=== PATIENT | male | born 1950 | race Two or more races ===

== ENCOUNTER 2024-09-25 18:11 | Inpatient (IN) ==
[2024-09-25] MEDS ORDERED: iohexoL-300 100 ML VIAL ONE (19:51)
[2024-09-25 19:55] LABS: BASOPHILS # (AUTO) 0.1 10^3/uL (0.0-0.1); BASOPHILS % (AUTO) 0.8 %; EOSINOPHILS # (AUTO) 0.2 10^3/uL (0.0-0.7); EOSINOPHILS % (AUTO) 2.1 %; HCT - HEMATOCRIT 39.2 % (42.0-52.0); HGB - HEMOGLOBIN 13.5 g/dL (14.0-18.0); LYMPHOCYTES # (AUTO) 1.2 10^3/uL (1.5-3.5); LYMPHOCYTES % (AUTO) 16.7 %; MEAN CORPUSCULAR HEMOGLOBIN 32.1 pg (27.0-31.0); MEAN CORPUSCULAR HGB CONC 34.4 g/dL (32.0-36.0); MEAN CORPUSCULAR VOLUME 93.1 fL (80.0-94.0); MEAN PLATELET VOLUME 9.3 fL (7.4-11.4); MONOCYTES # (AUTO) 0.5 10^3/uL (0.0-1.0); MONOCYTES % (AUTO) 6.6 %; NEUTROPHILS # (AUTO) 5.4 10^3/uL (1.5-6.6); NEUTROPHILS % (AUTO) 73.5 %; PLT - PLATELET COUNT 266 10^3/uL (130-450); RED BLOOD COUNT 4.21 10^6/uL (4.70-6.10); RED CELL DISTRIBUTION WIDTH 12.6 % (12.0-15.0); WHITE BLOOD COUNT 7.3 x10^3/uL (4.8-10.8)
--- NOTE | 2024-09-25 20:15 | ED Physician Documentation ---
History of Present Illness Stated complaint Stated Complaint: VOMITING Chief complaint Chief Complaint: General History obtained from History obtained from: Patient History of Present Illness Timing: Prior to arrival Additonal information Additional information: Patient 74-year-old male Generally healthy presents to the emergency department with epigastric pain nausea vomiting that started this afternoon after trying to eat some chili and dry cornbread. Patient notes persistent epigastric pain from the nausea vomiting but seem to resolve a little bit later. Patient has been having intermittent episodes of this for period of time now according to his . She notes it is progressively worsened and initially started with him eating a large piece of steak. She notes it never has gone on this along with the recurrent nausea and vomiting. Patient feels he is feeling significantly better. No chest pain no shortness of breath he notes he was drinking a beer with the chili and dry corn bed this afternoon. He has a history of a abdominal surgery but 2 years ago he had recurrent nausea and vomiting he had what sounds like a volvulus from what his is describing but no records as they went to [place] for it at that time. Patient denies any feelings of food stuck in his throat at this time. Meds/Allgy Allergies Allergies Allergy/AdvReac Type Severity Reaction Status Date / Time hydrochlorothiazide Allergy Severe Anaphylaxis Verified 09/25/24 18:17 mycophenolate mofetil Allergy Intermediate Emesis Verified 09/25/24 18:17 [facility] Active Problems All Active Problems (Updated 09/25/24 @ 22:25 by Kayli Townsend PA-C) Nausea & vomiting (Acute) Social History Social History Relationship: Do you feel safe in your home environment?: Yes Suffered physical, verbal, emotional, or financial abuse?: No POLST Patient has POLST: No Exam Exam Vital Signs: Vital Signs x48h Temp Pulse Resp BP Pulse Ox 09/25/24 21:49 93 16 178/75 H 96 09/25/24 21:00 84 16 148/106 H 94 09/25/24 19:20 79 16 176/75 H 96 09/25/24 18:17 36.7 C 77 16 167/72 H 97 Constitutional normal general appearance HENMT normocephalic, head/scalp atraumatic and hearing grossly normal bilaterally Eyes PERRL, EOMs intact bilaterally and conjunctivae normal Neck/C-Spine visual inspection normal Lymph no lymphadenopathy noted Chest inspection of chest normal Respiratory breath sounds equal bilaterally, normal respiratory effort and clear to ausculta tion bilaterally Cardiovascular normal heart rate noted, regular rhythm noted, no gallop and no rub Gastrointestinal No specific upper abdominal pain or lower abdominal pain no CVA tenderness no rebound or guarding. Active bowel sounds appreciated on auscultation. Abdomen nondistended on exam. Back/Pelvis spine normal to inspection Extremities normal to inspection Skin skin color normal, no rash and no lesions Results Vitals Vitals: Vital Signs - 24 hr 09/25/24 18:17 09/25/24 18:30 09/25/24 19:20 Temperature 36.7 C Temperature Source Tympanic Pulse Rate 77 79 Respiratory Rate 16 16 Blood Pressure 167/72 H 176/75 H O2 Saturation 97 96 O2 Source Room air Room air Pain Intensity 0 0 09/25/24 21:00 09/25/24 21:49 Temperature Temperature Source Pulse Rate 84 93 Respiratory Rate 16 16 Blood Pressure 148/106 H 178/75 H O2 Saturation 94 96 O2 Source Room air Room air Pain Intensity 0 Oxygen O2 Source Room air Labs Labs: Laboratory Tests 09/25/24 19:49 WBC 7.3 RBC 4.21 L Hgb 13.5 L Hct 39.2 L MCV 93.1 MCH 32.1 H MCHC 34.4 RDW 12.6 Plt Count 266 MPV 9.3 Neut # (Auto) 5.4 Lymph # (Auto) 1.2 L Deuel # (Auto) 0.5 Eos # (Auto) 0.2 Baso # (Auto) 0.1 Absolute Nucleated RBC 0.00 Nucleated RBC % 0.0 Sodium 132 L Potassium 4.0 Chloride 99 L Carbon Dioxide 23 Anion Gap 10.0 BUN 11 Creatinine 0.6 Estimated GFR (MDRD) 132 Glucose 102 Calcium 9.5 Total Bilirubin 0.6 AST 24 ALT 17 Alkaline Phosphatase 66 Total Protein 7.7 Albumin 4.5 Globulin 3.2 Albumin/Globulin Ratio 1.4 Lipase 25 PD Medical Decision Making ED course Complexity details: reviewed old records and reviewed results ED course: Patient 74-year-old male Generally healthy presents to the emergency department with epigastric pain nausea vomiting that started this afternoon after trying to eat some chili and dry cornbread. Patient notes persistent epigastric pain from the nausea vomiting but seem to resolve a little bit later. Patient has been having intermittent episodes of this for period of time now according to his . She notes it is progressively worsened and initially started with him eating a large piece of steak. She notes it never has gone on this along with the recurrent nausea and vomiting. Patient feels he is feeling significantly better. No chest pain no shortness of breath he notes he was drinking a beer with the chili and dry corn bed this afternoon. CT abdominal pelvis: No small bowel obstruction. No drainable abscess or ascites. Distended urinary bladder. Heterogeneous prostate enhancement is nonspecific. More focal enhancement is seen of the left apex, consider PSA and possible MRI correlation. Multiple abdominal hernias, including a moderate-sized ventral midline hernia containing omental vessels. Other findings above. CT chest: Trace hiatal hernia. Moderately distended esophagus. Possible small outpouching adjacent to the gastroesophageal junction at the distal esophagus, possibly a small tear versus diverticulum. Consider endoscopic correlation. No definite pneumomediastinum or pneumothorax. Other findings above. Reassuring CT abdomen but chest was gas for possible small tear versus diverticulum. I reviewed findings with on-call surgeon Dr. Verdin. He notes patient's symptoms reassuring as he has no pneumomediastinum and he has no persistent symptoms at this time. Feels patient is safe to go home as long as he can tolerate clear liquids. He recommends patient return with any worsening symptoms and he will see him in the outpatient setting. PO challenged here in the ED and failed. Discussed with Dr. Verdin again he will see patient in the morning agreeable with admission overnight. Patient will be admitted to DR. Cabral who is agreeable with this plan. Patient will remain n.p.o. PPI Protonix 40 ordered for patient. Discharge Plan Discharge Patient Disposition: 66 [facility] DC/Xfer Condition: Stable Clinical Impression: Nausea & vomiting Print Language: Macanese
[2024-09-25 20:40] LABS: ALBUMIN 4.5 g/dL (3.2-5.5); ALBUMIN/GLOBULIN RATIO 1.4 (1.0-2.2); BILIRUBIN,TOTAL 0.6 mg/dL (0.2-1.0); CALCIUM 9.5 mg/dL (8.5-10.3); CREATININE 0.6 mg/dL (0.6-1.3); TOTAL PROTEIN 7.7 g/dL (6.4-8.9)
[2024-09-25] MEDS: ONDANSETRON ODT 4 MG TABLET TL STA (20:58)
[2024-09-25] MEDS: iohexoL-300 100 ML VIAL IVP ONE (21:02)
--- NOTE | 2024-09-25 21:20 | CT Report ---
PROCEDURE: CT Chest W INDICATIONS: chest pain after vomiting CONTRAST: 100 ML OMNI 300 TECHNIQUE: After the administration of intravenous contrast, a CT scan of the chest was performed. Images were recorded and evaluated at appropriate window settings. Reformats: axial MIP of the chest, coronal and sagittal. For radiation dose reduction, the following was used: automated exposure control, adjustme nt of mA and/or kV according to patient size. COMPARISON: None. FINDINGS: Image quality: Diagnostic Lungs and pleura:Bilateral apex scarring. No dense airspace disease. No pleural effusions. No pneumot horax. Mediastinum, heart, and esophagus: Moderately distended esophagus and possible trace hiatal hernia. T here is a small outpouching adjacent to the gastroesophageal junction on the left image . No pathologic lymphadenopathy by size criteria. There are coronary calcifications. Chest wall and thyroid: No actionable thyroid nodule identified. Chest wall is unremarkable Upper abdomen: Separately dictated Bones: No aggressive appearing osseous abnormality. IMPRESSION: Trace hiatal hernia. Moderately distended esophagus. Possible small outpouching adjacent to the travis roesophageal junction at the distal esophagus, possibly a small tear versus diverticulum. Consider endoscopic correlation. No definite pneumomediastinum or pneumothorax. Other findings above. Reviewed by: Sid Mckee MD on 09/25/2024 9:19 PM PDT Approved by: Sid Mckee MD on 09/25/2024 9:19 PM PDT Station ID: [id number]
--- NOTE | 2024-09-25 21:24 | CT Report ---
PROCEDURE: CT Abdomen/Pelvis W INDICATIONS: abdominal pain, vomiting CONTRAST: 100 ML OMNI 300 TECHNIQUE: After the administration of intravenous contrast, a CT scan of the abdomen and pelvis was performed. Images were recorded and evaluated at appropriate window settings. Reformats: coronal and sagittal. F or radiation dose reduction, the following was used: automated exposure control, adjustment of mA and /or kV according to patient size. COMPARISON: None. FINDINGS: Image quality: Diagnostic Lower chest: Separately dictated Liver: Unremarkable Gallbladder and biliary system: Unremarkable, nondilated Pancreas: No ductal dilation Spleen: Nonenlarged Adrenals: No discrete nodules Kidneys: Suspected small cysts. No solid renal mass. No hydronephrosis. Vessels and lymph nodes: Main portal vein is patent. No abdominal aortic aneurysm. No pathologic lymp hadenopathy by size criteria. Bowel and peritoneum: Small duodenal diverticula. No drainable abscess or ascites. No small bowel obstruction. Body wall: Moderate fat-containing umbilical hernia containing also omental vessels. Small fat-contai alexx right inguinal hernia also seen. Pelvis: Urinary bladder is distended. Suspected bursal fluid adjacent to the right hip Heterogeneous prostate enhancement and calcifications, not well assessed on this study. Focal enhance ment is seen at the left apex. Bones: No aggressive appearing osseous abnormality. Sacroiliac ankylosis. Scattered degenerative rodriguez ges. IMPRESSION: No small bowel obstruction. No drainable abscess or ascites. Distended urinary bladder. Heterogeneous prostate enhancement is nonspecific. More focal enhancement is seen of the left apex, consider PSA and possible MRI correlation. Multiple abdominal hernias, including a moderate-sized ventral midline hernia containing omental vess els. Other findings above. Reviewed by: Sid Mckee MD on 09/25/2024 9:23 PM PDT Approved by: Sid Mckee MD on 09/25/2024 9:23 PM PDT Station ID: [id number]
[2024-09-25] MEDS ORDERED: SODIUM CHLORIDE FLUSH 0.9% 10 ML SYRINGE IVP PRN (22:30)
[2024-09-25] MEDS ORDERED: ONDANSETRON 4 MG/2 ML VIAL IVP PRN (22:30)
[2024-09-25] MEDS: PANTOPRAZOLE 40 MG VIAL IVP STA (22:43)
[2024-09-25] MEDS: SODIUM CHLORIDE 0.9% 1,000 ML IV SCH (22:43)
--- NOTE | 2024-09-25 22:48 | HISTORY & PHYSICAL EXAMINATION ---
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 Denies hematemesis, melena, rectal bleeding. CT abdomen/pelvis showed possible esophageal tear. As per Kayli HOLBROOK), she consulted with surgeon identification printing machine setter who recommended admission for possible EGD in am Pt is admitted due to nausea, vomiktimg, epigastric pain and possible esophageal tear Review of Systems Status of ROS: 10 or more systems reviewed and unremarkable except as noted in history and below PFSH Active Problems All Active Problems (Updated 09/25/24 @ 22:25 by Kayli Townsend PA-C) Nausea & vomiting (Acute) Social History Social History Relationship: Do you feel safe in your home environment?: Yes Suffered physical, verbal, emotional, or financial abuse?: No POLST Patient has POLST: No Meds/Allgy Allergies Allergies Allergy/AdvReac Type Severity Reaction Status Date / Time hydrochlorothiazide Allergy Severe Anaphylaxis Verified 09/25/24 18:17 mycophenolate mofetil Allergy Intermediate Emesis Verified 09/25/24 18:17 Exam Exam Vital Signs: Vital Signs x48h Temp Pulse Resp BP Pulse Ox 09/25/24 21:49 93 16 178/75 H 96 09/25/24 21:00 84 16 148/106 H 94 09/25/24 19:20 79 16 176/75 H 96 09/25/24 18:17 36.7 C 77 16 167/72 H 97 Constitutional normal general appearance HENMT normocephalic Eyes PERRL Chest inspection of chest normal Respiratory breath sounds equal bilaterally Cardiovascular normal heart rate noted Gastrointestinal abdomen normal to inspection Extremities normal to inspection Neurology no focal motor deficit noted Psychiatry oriented x3 Skin no rash Conclusion/Plan Problem List (1) Nausea & vomiting: Plan: A: Nausea and vomiting Epigastric pain Esophageal tear Dehydration Hyponatremia Plan: Admit to med surg with tele NPO Start protonix 40 mg iv qd zofran iv prn Start NS @ 100 cc/h monitor i/o, electrolytes Surgeon identification printing machine setter was consulted by Kayli HOLBROOK) DVT prophylaxic: SCD Full code Pt is admitted as inpatient as more than 2 midnight stay is expected Lab Results 09/25/24 19:49 09/25/24 19:49
[2024-09-25 23:24] LABS: BILIRUBIN,URINE NEGATIVE (NEGATIVE); GLUCOSE, URINE (UA) NEGATIVE (NEGATIVE); KETONES,URINE (UA) TRACE mg/dL (NEGATIVE); LEUKOCYTE ESTERASE, URINE MODERATE (NEGATIVE); NITRITE,URINE POSITIVE (NEGATIVE); OCCULT BLOOD,URINE NEGATIVE (NEGATIVE); PROTEIN,URINE NEGATIVE (NEGATIVE); UROBILINOGEN,URINE 0.2 (NORMAL) E.U./dL (NORMAL)
[2024-09-25 23:33] LABS: BACTERIA,URINE Many /HPF (None Seen); CLARITY,URINE HAZY (CLEAR); SQUAMOUS EPITHELIAL CELL,UR RARE Squamous (<= Few)
[2024-09-26] MEDS: SODIUM CHLORIDE FLUSH 0.9% 10 ML SYRINGE IVP SCH (01:03)
[2024-09-26] MEDS: PANTOPRAZOLE 40 MG VIAL IV SCH (08:55)
--- NOTE | 2024-09-26 11:10 | PHARMACY PROGRESS NOTE ---
Best Possible Medication History Admit Date and Time: 09/25/24 2230 Home Medications Medication Instructions Recorded Confirmed Type acetaminophen 500 mg capsule 500 mg PO Q4H PRN fever or pain 09/25/24 09/25/24 History atorvastatin 20 mg tablet 20 mg PO QPM 09/25/24 09/25/24 History diltiazem HCl 420 mg capsule,24 420 mg PO ONCE 09/25/24 09/25/24 History hr,extended release (Tiadylt ER) finasteride 5 mg tablet 5 mg PO ONCE 09/25/24 09/25/24 History losartan 100 mg tablet 100 mg PO ONCE 09/25/24 09/25/24 History tamsulosin 0.4 mg capsule 0.8 mg PO ONCE 09/25/24 09/25/24 History vitamin A 3,000 mcg (10,000 unit) 3,000 mcg PO DAILY 09/25/24 09/25/24 History capsule Processed by: Pharmacy Medications reviewed in ED?: No Medication History completed: Yes Patient Interview: Completed Secondary Source(s): Other family member and Insurance records [facility] Statement: Per interview with spouse and patient and [facility]. As the person ultimately responsible for medication therapy, providers are able to order a medication from an existing home medication list in [facility] via the "Reconcile Routine" prior to Confirmation of that medication by business support associate. Such practice is discouraged except when the physician, in their clinical judgment, deems that a medical need exists for a medication without regard to previous use.
[2024-09-26] MEDS ORDERED: ACETAMINOPHEN 500 MG TABLET PO PRN (12:06)
[2024-09-26] MEDS: LOSARTAN 50 MG TABLET PO SCH (14:44)
[2024-09-26] MEDS: FINASTERIDE 5 MG TABLET PO SCH (14:44)
[2024-09-26] MEDS: diltiaZEM CD 240 MG CAPSULE PO SCH (15:02)
[2024-09-26] MEDS: diltiaZEM CD 180 MG CAPSULE PO SCH (15:02)
[2024-09-26 15:37] VITALS: BP 150/84; TEMP 97.9; O2SAT 98
--- NOTE | 2024-09-26 19:55 | Discharge Summary ---
Discharge Summary Admit Date: 09/25/24 Discharge Date: 09/26/24 Discharging Provider: Jacobo Florez MD DIAGNOSES Admission Diagnoses: 1. nausea and vomiting 2. epigastric pain 3. r/o esophageal tear 4. dehydration 5. hyponatremia Discharge Diagnoses with Status of Each Condition: 1. nausea and vomiting, resolved 2. epigastric pain, resolved 3. r/o esophageal tear 4. dehydration, resolved 5. hyponatremia 6. HTN 7. BPH 8. chronic urinary retention requiring self catheterization 9. afib HPI History of Present Illness: 74 y old male with PMH Volvulus, afib not on anticoagulation, HTN, BPH, urinary retention presented to ER due to epigastric pain, nausea, vomiting for 1 day. Denies hematemesis, melena, rectal bleeding.CT abdomen/pelvis showed possible esophageal tear. As per Kayli ( YUSEF), she consulted with surgeon subcontracts manager who recommended admission for possible EGD in am. Pt is admitted due to nausea, vomiting, epigastric pain and possible esophageal tear. HOSPITAL COURSE Hospital Course: 1. nausea and vomiting, resolved. epigastric pain, resolved. r/o esophageal tear: I discussed case with surgeon Dr. Verdin today and he has low suspicion for gastric tear. The pt has no reported hematemesis. Symptoms more consistent with globus sensation and food getting stuck in lower chest. Notes intermittent episodes of similar complains over recent months, suggesting a more chronic condition. Consider esophageal stricture, esophagitis, GERD, mechanical obstruction, motility disorder. No problem with swallowing liquids. Symptoms entirely resolved by day of discharge. Pt tolerated po intake of solid and liquids without problems. He had good follow up with his PMD and plans colonoscopy soon. He will request a referral for EGD from his PMD. 2. hyponatremia: Mildly low Na at 132 on admission. Suspect due to vomiting and volume depletion. With regular po intake, expect sodium to normalize. 3. HTN: Continue home losartan 4. afib: Continue home diltiazem. Updated at bedside. ALLERGIES Allergies Allergy/AdvReac Type Severity Reaction Status Date / Time hydrochlorothiazide Allergy Severe Anaphylaxis Verified 09/25/24 18:17 mycophenolate mofetil Allergy Intermediate Emesis Verified 09/25/24 18:17 MEDICATIONS Ambulatory Orders Medication Instructions Recorded Confirmed acetaminophen 500 mg capsule 500 mg PO Q4H PRN fever or pain 09/25/24 09/25/24 atorvastatin 20 mg tablet 20 mg PO QPM 09/25/24 09/25/24 diltiazem HCl 420 mg capsule,24 420 mg PO ONCE 09/25/24 09/25/24 hr,extended release (Tiadylt ER) finasteride 5 mg tablet 5 mg PO ONCE 09/25/24 09/25/24 losartan 100 mg tablet 100 mg PO ONCE 09/25/24 09/25/24 tamsulosin 0.4 mg capsule 0.8 mg PO ONCE 09/25/24 09/25/24 vitamin A 3,000 mcg (10,000 unit) 3,000 mcg PO DAILY 09/25/24 09/25/24 capsule PHYSICAL EXAM AT DISCHARGE Vital Signs: Vital Signs x48h Temp Pulse Pulse Resp BP Pulse Ox 09/26/24 15:34 36.6 C 70 14 150/84 H 98 09/26/24 12:01 36.7 C 76 20 166/85 H 95 older man sitting in bed, NAD, sclera anicteric, MMM LCTAB, RRR, S1S2, no edema abd soft, NT, Nd, BS+ AAOx3, CN 2-12 intact, strength 5/5 UE and LE bilat, sensation intact LABS 09/25/24 19:49 09/25/24 19:49 DIAGNOSTIC IMAGING Diagnostic Imaging Results Comments: CT chest, 09/25/24: FINDINGS: Image quality: Diagnostic Lungs and pleura:Bilateral apex scarring. No dense airspace disease. No pleural effusions. No pneumothorax. Mediastinum, heart, and esophagus: Moderately distended esophagus and possible trace hiatal hernia. There is a small outpouching adjacent to the gastroesophageal junction on the left image . No pathologic lymphadenopathy by size criteria. There are coronary calcifications. Chest wall and thyroid: No actionable thyroid nodule identified. Chest wall is unremarkable Upper abdomen: Separately dictated Bones: No aggressive appearing osseous abnormality. IMPRESSION: Trace hiatal hernia. Moderately distended esophagus. Possible small outpouching adjacent to the gastroesophageal junction at the distal esophagus, possibly a small tear versus diverticulum. Consider endoscopic correlation. No definite pneumomediastinum or pneumothorax. Other findings above. Reviewed by: Sid Mckee MD on 09/25/2024 9:[address] abd/pelvis, 09/26/24: FINDINGS: Image quality: Diagnostic Lower chest: Separately dictated Liver: Unremarkable Gallbladder and biliary system: Unremarkable, nondilated Pancreas: No ductal dilation Spleen: Nonenlarged Adrenals: No discrete nodules Kidneys: Suspected small cysts. No solid renal mass. No hydronephrosis. Vessels and lymph nodes: Main portal vein is patent. No abdominal aortic aneurysm. No pathologic lymphadenopathy by size criteria. Bowel and peritoneum: Small duodenal diverticula. No drainable abscess or ascites. No small bowel obstruction. Body wall: Moderate fat-containing umbilical hernia containing also omental vessels. Small fat-containing right inguinal hernia also seen. Pelvis: Urinary bladder is distended. Suspected bursal fluid adjacent to the right hip Heterogeneous prostate enhancement and calcifications, not well assessed on this study. Focal enhancement is seen at the left apex. Bones: No aggressive appearing osseous abnormality. Sacroiliac ankylosis. Scattered degenerative changes. IMPRESSION: No small bowel obstruction. No drainable abscess or ascites. Distended urinary bladder. Heterogeneous prostate enhancement is nonspecific. More focal enhancement is seen of the left apex, consider PSA and possible MRI correlation. Multiple abdominal hernias, including a moderate-sized ventral midline hernia containing omental vessels. Other findings above. Reviewed by: Sid Mckee MD on 09/25/2024 9:23 PM PDT TIME SPENT Time Spent in Discharge (Minutes): 45 Discharge Plan Discharge Patient Disposition: 01 Home, Self Care Condition: Stable Medically Cleared Date:: 09/26/24 Prescriptions: Continued atorvastatin 20 mg tablet 20 mg PO QPM Patient Comments: TAKE 1 TABLET BY MOUTH DAILY diltiazem HCl [Tiadylt ER] 420 mg capsule,extended release 24hr 420 mg PO ONCE Patient Comments: TAKE 1 CAPSULE BY MOUTH DAILY finasteride 5 mg tablet 5 mg PO ONCE Patient Comments: TAKE 1 TABLET BY MOUTH DAILY losartan 100 mg tablet 100 mg PO ONCE Patient Comments: TAKE 1 TABLET BY MOUTH DAILY tamsulosin 0.4 mg capsule 0.8 mg PO ONCE Patient Comments: TAKE 2 CAPSULES BY MOUTH DAILY vitamin A 3,000 mcg (10,000 unit) capsule 3,000 mcg PO DAILY acetaminophen 500 mg capsule 500 mg PO Q4H PRN (Reason: fever or pain) Activity Restrictions: Activity as Tolerated Diet: Regular Plan of Treatment: Contact your primary care provider or return to the hospital if you have trouble swallowing, abdominal pain, vomiting, difficulty breathing, choking, bleeding, or for any other concerns. Due to symptoms of food getting stuck, take small bites and chew food completely before swallowing. Drink water or other fluids with your meals. Avoid eating large chunks of meat and other hard foods. Follow up with your primary care doctor to arrange for EGD (esophagogastroduodenoscopy) to determine the cause of these symptoms. Continue taking your home medications as previously prescribed. Print Language: Albanian Patient Instructions: Nausea Vomit Control Stand Alone Forms: PCP List Follow-up Care: MANISHA HUSAIN MD [Physician No Access] - (Make an appointment for follow up in 1-2 weeks. )
[2024-09-26] MEDS ORDERED: ATORVASTATIN 10 MG TABLET PO SCH (21:00)
[2024-09-26] MEDS ORDERED: TAMSULOSIN 0.4 MG CAPSULE PO SCH (21:00)
== END 2024-09-26 15:42 | disposition home or self-care (01) | DRG 392 ==
LOC: ED 18:11 → MS2 22:30
PROVIDERS: ADMIT Internal Medicine; ATTEND Internal Medicine